=== PATIENT | male | born 1995 | race Caucasian/White ===

== ENCOUNTER 2020-08-01 15:45 | Emergency (ER) | payer BC ==
[~2020-08-01] VITALS: Ht 185.4 cm; Wt 90.7 kg
[2020-08-01] MEDS ORDERED: BACTRIM DS TAB1 EACH PO (20:45)
== END 2020-08-01 20:52 | disposition home or self-care (01) ==
LOC: ER 15:45
DX: L03.113 Cellulitis of right upper limb (principal); M79.601 Pain in right arm; Z03.818 Encounter for observation for suspected exposure to other biological agents ruled out